=== PATIENT | male | born 1965 | race Caucasian/White ===

== ENCOUNTER 2019-12-07 08:43 | Emergency (ER) | payer OTHER ==
[2019-12-07 08:52] VITALS: RESP 16; TEMP 97.5
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
[2019-12-07 10:09] VITALS: BP 164/90; PULSE 80
== END 2019-12-07 10:00 | disposition home or self-care (01) ==
LOC: EC 08:43
DX: S00.01XA Abrasion of scalp, initial encounter (principal); S00.31XA Abrasion of nose, initial encounter; S50.312A Abrasion of left elbow, initial encounter; S50.311A Abrasion of right elbow, initial encounter; S80.212A Abrasion, left knee, initial encounter; S60.410A Abrasion of right index finger, initial encounter; R06.00 Dyspnea, unspecified; V28.4XXA Motorcycle driver injured in noncollision transport accident in traffic accident, initial encounter; Y92.488 Other paved roadways as the place of occurrence of the external cause; Y93.55 Activity, bike riding
CPT/HCPCS: 70450; 72125; 82075; 99285